=== PATIENT | male | born 1965 | race African-American/Black ===

== ENCOUNTER 2019-08-21 15:05 | Observation (INO) ==
[2019-08-21 15:50] LABS: Basophils # (auto) 0.02 K/uL (0-0.2); Basophils % (auto) 0.3 %; Eosinophils # (auto) 0.31 K/uL (0-0.5); Eosinophils % (auto) 5.1 %; Hematocrit (blood only) 40.7 % (42-52); Hemoglobin 14.2 g/dL (14.0-18.0); Immature Granulocytes # (auto) 0.01 K/uL (0.00-0.02); Immature Granulocytes % (auto) 0.2 %; Lymphocytes # (auto) 2.18 K/uL (1.2-3.4); Lymphocytes % (auto) 35.6 %; Mean Corpuscular Hemoglobin 31.3 pg (25-34); Mean Corpuscular Hgb Conc 34.9 g/dL (32-36); Mean Corpuscular Volume 89.8 fL (80-100); Mean Platelet Volume 12.1 fL (7.4-10.4); Monocytes # (auto) 0.56 K/uL (0.11-0.59); Monocytes % (auto) 9.2 %; Neutrophils # (auto) 3.04 K/uL (1.4-6.5); Neutrophils % (auto) 49.6 %; Platelet Count 171 K/uL (130-400); RDW Coefficient of Variation 12.4 % (11.5-14.5); RDW Standard Deviation 40.7 fL (36.4-46.3); Red Blood Count 4.53 M/uL (4.7-6.1); White Blood Count 6.12 K/uL (4.8-10.8)
--- NOTE | 2019-08-21 16:02 | XRay Report ---
XR chest 1V portable CLINICAL HISTORY: Chest pain. COMPARISON STUDY: No previous studies for comparison. FINDINGS: Lung volumes are normal. There is no pneumothorax or pleural effusion. There is no consolid ation or evidence for pulmonary edema. Cardiac size is normal. Mediastinal contours are normal. Patie nt is mildly rotated. Note is made of irregularity and slight expansion of the posterior right 10th r ib. IMPRESSION: 1. No acute cardiopulmonary findings. 2. Irregularity and slight expansion of the posterior right 10th rib. Although nonspecific, this stat istically reflects a healed fracture. Correlation with prior imaging studies, if available, is recomm ended. In the absence of prior studies, follow-up right rib series is recommended. Electronically signed by: Ned Magdaleno M.D. 08/21/2019 4:01 PM
[2019-08-21 16:03] LABS: Alanine Aminotransferase 24 U/L (12-78); Albumin Level 3.6 gm/dl (3.4-5.0); Aspartate Aminotransferase 16 U/L (15-37); BUN Creatinine Ratio 10.5 (10-20); Blood Urea Nitrogen 12 mg/dl (7-18); Calcium 9.2 mg/dl (8.5-10.1); Carbon Dioxide 28 mmol/L (21-32); Chloride 105 mmol/L (98-107); Creatinine Clr Calc Pharmacy 72.8 ml/min; Est GFR (African American) 83.2; Est GFR (Non-African American) 71.7; Glucose 87 mg/dl (70-99); Lipase 87 U/L (73-393); Magnesium 2.2 mg/dl (1.8-2.4); Potassium 3.7 mmol/L (3.5-5.1); Sodium 138 mmol/L (136-145)
[2019-08-21 16:08] LABS: Prothrombin Time 10.3 Seconds (9.0-12.0)
[2019-08-21 16:15] LABS: Albumin Globulin Ratio 0.9 (0.9-2); Alkaline Phosphatase 77 U/L (45-117); Bilirubin,Total 1.1 mg/dl (0.2-1); Phosphorus 3.1 mg/dl (2.5-4.9); Total Protein 7.6 gm/dl (6.4-8.2); Troponin I < 0.015 ng/ml (0-0.045)
[2019-08-21] MEDS ORDERED: GI COCKTAIL ED USE PO ONE (16:59)
[2019-08-21] MEDS ORDERED: FAMOTIDINE 20MG IV PUSH 20 MG/5 ML SYR IV STA (16:59)
[2019-08-21] MEDS ORDERED: NITROGLYCERIN SL 0.4 MG/TAB TAB SL PRN (19:45)
[2019-08-21] MEDS ORDERED: MoRPHine SULFATE 2 MG/ML CARP IV PRN (19:59)
[2019-08-21] MEDS ORDERED: ZOLPIDEM TARTRATE 5 MG TAB PO PRN (19:59)
[2019-08-21] MEDS ORDERED: MAGNESIUM HYDROXIDE SUSP 30 ML UDC PO PRN (19:59)
[2019-08-21] MEDS ORDERED: POLYETHYLENE (MIRALAX) 17 GM PACK PO PRN (19:59)
[2019-08-21] MEDS ORDERED: ALUMINUM/MAGNESIUM SUSP 30 ML UDC PO PRN (19:59)
[2019-08-21] MEDS ORDERED: ONDANSETRON INJ 2 MG/ML 2 ML VIAL IV PRN (19:59)
[2019-08-21] MEDS ORDERED: ASPIRIN 81 MG ECTAB PO STA (20:12)
--- NOTE | 2019-08-21 20:23 | History & Physical Report ---
Date of Service August 21, 2019 Assessment & Plan (1) Chest pain: Plan: admit to telemetry obtain serial cardiac enz NTG SL/topical prn CP, if chest pain does not improve we will consider starting nitroglycerin drip consult configuration management manager pain management Check hemoglobin A1c/lipids to stratify patient risk factors repeat EKG prn chest pain (2) HTN (hypertension): Systolic blood pressure is 140 expected to drop with a nitroglycerin patch Heart rate is in the 60s, if pressure is not improved with nitroglycerin patch we will start low-dose beta-fritz History of Present Illness 54-year-old man with a past medical history came from a correction facility, patient stated that he did have a cardiac catheterization in the , and another cardiac catheterization in October 2018 in [place] in [facility] patient is not sure if he had stents or not but he said that he was on Plavix for the. Of time until he was taken off Plavix. He was in his regular state of health, said that on off he gets mild left-sided chest pain that resolves by itself. Unrelated to exertion. Today he was watching TV when he developed sudden severe left-sided chest pain effect of his neck and left shoulder. He said that it initially felt like heaviness then changed into stabbing, 10/10 intensity , associated with shortness of breath, diaphoresis. He woke to the medical office and was sent to the ED, said that sublingual nitroglycerin helped with the pain partially. He came to the ED and he continued to have pain 6/10. Quit smoking 10 months ago Quit cocaine/drugs 11 years ago No access to alcohol Primary Care Provider: [facility] Allergies Allergy/AdvReac Type Severity Reaction Status Date / Time No Known Allergies Allergy Unverified 08/21/19 16:00 Home Medications Home Medications Medication Instructions Recorded Confirmed Type nitroglycerin 0.4 mg SUBLINGUAL UD 08/21/19 08/21/19 History Past Med/Surg History Medical History History of heart attack HTN (hypertension) Surgical History Hx of cardiac catheterization Family History Other No significant family history Social History Preferred Language: Greek marital status: Single Current Living Situation: Other Current Living Situation Comment: [facility] current occupational status: other current occupation: Prisoner Feels Safe at Home: Yes Smoking Status: Former smoker Review of Systems Review of Systems: Review of system Constitutional: No fever / no chills / no sweats / no weakness / no fatigue Eyes: no blurring of vision / no eye pain / no discharge / no redness ENT: no hearing loss / no epistaxis /no swallowing problems Respiratory: no cough / no wheezing / no SOB / no hemoptysis Cardiovascular: Positive for chest pain / no lower extremity edema / no palpitation Abdomen: no pain / no nausea / no vomiting / no constipation Musculoskeletal: no joint pain / no muscle pain / no joint swelling Genitourinary: no dysuria / no incontinence / no urinary retention Neurologic: no focal weakness / no numbness/tingling / no ataxia Psychiatric: no depression symptoms / no anxiety / no insomnia Endocrine: no excessive thirst / no excessive urination Hematologic: no abnormal bleeding / no bruising / no LN swelling Skin: No rash / no pallor Physical Exam Physical Exam: Physical examination General patient appears to be comfortable, not in acute distress HEENT: Atraumatic , normocephalic /no jaundice /no pallor /anicteric /no dry mucous membrane /normal external ear inspection Neck: Supple /no swelling /central trach Heart: S1/S2 normal/regular rate and rhythm/no gallop /no rub /no murmur Lungs: Clear to auscultation bilaterally/normal chest with expansion/no rhonchi/no rales/no wheezing/no use of accessory muscles of respiration Abdomen: Soft/nontender/no guarding/no rebound/no organomegaly/no pulsatile mass Musculoskeletal: No swelling/no edema/no tenderness/normal range of motion Neuro exam: Awake alert oriented 3/cranial nerves II through XII appear to be intact/sensation intact/moves all extremities/no abnormal movements Psychiatric evaluation: No depressed mood/normal affect Skin: No rash on exposed skin area/no erythema Extremity: Normal pulse/no pitting edema/no clubbing or cyanosis Endocrine/lymphatic: No obvious lymphadenopathy /no lymphedema Results & Data Vital Signs (Past 12 Hours) Vital Signs Temp Pulse Pulse Resp BP BP Pulse Ox 08/21/19 20:00 63 15 141/93 H 99 08/21/19 19:30 65 15 144/102 H 99 08/21/19 19:00 64 16 156/111 H 99 08/21/19 18:30 62 15 149/110 H 99 08/21/19 18:09 64 18 133/103 H 99 08/21/19 18:00 62 13 140/100 99 08/21/19 17:35 61 18 137/98 99 08/21/19 17:30 67 13 137/98 08/21/19 17:00 63 14 138/97 99 08/21/19 16:30 61 17 131/95 98 08/21/19 16:00 65 14 132/95 98 08/21/19 15:30 67 16 137/91 97 08/21/19 15:05 36.6 C 71 16 130/110 H 97 PG Care Time/CCT Total # of Minutes Spent Total Time Spent with Patient: 35 minutes total time spent is greater than 50% in coordination of care (as documented) at patient's floor/unit and/or counseling patient/family discussion of care with nursing staff
[2019-08-21 21:21] LABS: D Dimer 320 ug/L FEU (0-500)
--- NOTE | 2019-08-21 22:01 | Emergency Department Note ---
Entered by Amy Welch acting as a scribe for History of Present Illness General Chief complaint: Chest Pain Time Seen by Provider: 08/21/19 15:11 Source: patient History of Present Illness Onset (ago): hour(s) 2 Location: chest Severity: similar to prior episodes (heart attacks) Pain Consistency: + constant Maximum Pain Intensity: 8 Current Pain Intensity: 8 Quality: + aching Relieved By: not by medication (Nitroglycerin, Aspirin) Exacerbated By: + movement (exertion) Associated symptoms: + denies other symptoms (congestion, diarrhea) and + diaphoresis; no cough, no fever/chills (fever), no nausea/vomiting (nausea) and no shortness of breath The patient is a 54 year old male who presents to the Emergency Room with complaints of constant chest pain starting 2 hours ago. The patient states that he has a history of 2 heart attacks in his past. He reports that today he was sitting watching TV when he suddenly started having an aching chest pain. He reports that he broke out into a sweat. He states that it felt similar to his previous heart attacks. He states that he took a Nitroglycerin and 4 Aspirin, but it offered no relief. He states that the pain is currently an 8/ 10 in severity. He notes that intermittently heh as a sharp chest pain ever few months that he takes Nitroglycerin for, but recently has had it intermittently with exertion. The patient notes that he was on Plavix, but no longer is. The patient denies a history of blood clots, a history of GERD, eating prior to the pain coming on, fever, cough, congestion, diarrhea, shortness of breath, and nausea. Home Medications Home Medications Medication Instructions Recorded Confirmed Type nitroglycerin 0.4 mg SUBLINGUAL UD 08/21/19 08/21/19 History Allergies Allergy/AdvReac Type Severity Reaction Status Date / Time No Known Allergies Allergy Unverified 08/21/19 16:00 Past Med/Surg History Medical History History of heart attack HTN (hypertension) Surgical History Hx of cardiac catheterization Family History Other No significant family history Social History Preferred Language: Portuguese Communication Ability: Effective Beliefs That Will Affect Care: None marital status: Single Current Living Situation: Other Current Living Situation Comment: [facility] current occupational status: other current occupation: Prisoner Other Information That Helps Us Care for You: No Feels Safe at Home: Yes Safety Concerns: Feels Safe At This Time Smoking Status: Never smoker Hx Alcohol Use: No Hx Substance Use: No Review of Systems See HPI for pertinent positives & negatives. and A total of 10 systems reviewed and were otherwise negative Physical Exam Vital Signs Vital Signs - 24 hr 08/21/19 15:05 08/21/19 15:30 08/21/19 16:00 Temperature 36.6 C Temperature Source Oral Pulse Rate 71 67 65 Pulse Rate [Left] Pulse Rate from SpO2 Sensor 67 65 Pulse Rhythm Regular Respiratory Rate 16 16 14 Respiratory Effort / Characteristics Non-Labored Respiratory Depth Normal Respiratory Pattern Regular Blood Pressure 130/110 H 137/91 132/95 Blood Pressure [Right Arm] Blood Pressure Mean 116 97 101 Blood Pressure Mean [Right Arm] Blood Pressure Position [Right Arm] Pulse Oximetry 97 97 98 Oxygen Delivery Method Room Air Room Air Room Air Sepsis Recent Fever Within 48 Hours No Sepsis New/Unexplained Change in Mental Status No Sepsis Action Taken by Nursing No Action Required 08/21/19 16:30 08/21/19 17:00 08/21/19 17:30 Temperature Temperature Source Pulse Rate 61 63 67 Pulse Rate [Left] Pulse Rate from SpO2 Sensor 62 63 Pulse Rhythm Respiratory Rate 17 14 13 Respiratory Effort / Characteristics Respiratory Depth Respiratory Pattern Blood Pressure 131/95 138/97 137/98 Blood Pressure [Right Arm] Blood Pressure Mean 100 110 104 Blood Pressure Mean [Right Arm] Blood Pressure Position [Right Arm] Pulse Oximetry 98 99 Oxygen Delivery Method Room Air Room Air Sepsis Recent Fever Within 48 Hours Sepsis New/Unexplained Change in Mental Status Sepsis Action Taken by Nursing 08/21/19 17:35 08/21/19 18:00 08/21/19 18:09 Temperature Temperature Source Pulse Rate 62 64 Pulse Rate [Left] 61 Pulse Rate from SpO2 Sensor 62 64 Pulse Rhythm Respiratory Rate 18 13 18 Respiratory Effort / Characteristics Non-Labored Spontaneous Respiratory Depth Respiratory Pattern Blood Pressure 140/100 133/103 H Blood Pressure [Right Arm] 137/98 Blood Pressure Mean 107 107 Blood Pressure Mean [Right Arm] 111 Blood Pressure Position [Right Arm] Lying Pulse Oximetry 99 99 99 Oxygen Delivery Method Room Air Room Air Room Air Sepsis Recent Fever Within 48 Hours Sepsis New/Unexplained Change in Mental Status Sepsis Action Taken by Nursing 08/21/19 18:30 08/21/19 19:00 08/21/19 19:30 Temperature Temperature Source Pulse Rate 62 64 65 Pulse Rate [Left] Pulse Rate from SpO2 Sensor 63 64 63 Pulse Rhythm Respiratory Rate 15 16 15 Respiratory Effort / Characteristics Respiratory Depth Respiratory Pattern Blood Pressure 149/110 H 156/111 H 144/102 H Blood Pressure [Right Arm] Blood Pressure Mean 126 130 106 Blood Pressure Mean [Right Arm] Blood Pressure Position [Right Arm] Pulse Oximetry 99 99 99 Oxygen Delivery Method Room Air Room Air Room Air Sepsis Recent Fever Within 48 Hours Sepsis New/Unexplained Change in Mental Status Sepsis Action Taken by Nursing GENERAL: Awake, alert, fatigued-appearing, in no distress HENT: Normocephalic, atraumatic. Oropharynx with dry mucous membranes and otherwise unremarkable. EYES: Normal conjunctiva. Sclera non-icteric. NECK: Supple. No nuchal rigidity. FROM. No JVD. RESPIRATORY: Clear to auscultation bilaterally. CARDIAC: Regular rate, normal rhythm. Extremities warm and well perfused. Pulses equal. ABDOMEN: Soft, non-distended. No tenderness to palpation. No rebound or guarding. No masses. RECTAL: Deferred. MUSCULOSKELETAL: Chest examination reveals no tenderness. The back is s ymmetrical on inspection without obvious abnormality. There is no CVA tenderness to palpation. No joint edema. LOWER EXTREMITIES: Calves are equal size bilaterally and non-tender. No edema. No discoloration. NEURO: Normal sensorium. No sensory or motor deficits noted. SKIN: No rash or jaundice noted. Course Course 1547: The patient was evaluated in room B6. A complete history and physical exam was performed. 1711: I discussed the patient's case with Dr. Dickinson [facility] Hospitalist. He will evaluate the patient for further management. 1725: I reevaluated the patient and updated him on his test results. I discussed the treatment plan with him. He verbally agrees and understands. Administered Medications Acetaminophen (Tylenol) 650 mg PO Q4H PRN PRN Reason: Pain or Fever Stop: 09/20/19 19:58 Last Admin: 08/21/19 23:03 Dose: 650 mg Documented by: [id number] Atorvastatin Calcium (Lipitor) 40 mg PO DAILY IVONNE Stop: 09/20/19 20:59 Last Admin: 08/21/19 23:01 Dose: 40 mg Documented by: [id number] Sodium Chloride (Nss 1000ml) 1,000 mls @ 50 mls/hr IV .Q20H IVONNE Stop: 09/20/19 19:59 Last Admin: 08/21/19 23:01 Dose: 50 mls/hr Documented by: [id number] Nitroglycerin (Nitrostat) 0.4 mg SL UD PRN PRN Reason: Chest Pain Stop: 09/20/19 19:58 Last Admin: 08/21/19 23:02 Dose: 0.4 mg Documented by: [id number] Nitroglycerin (Nitro-Bid 2%) 1 inch EXT Q6 IVONNE Stop: 09/21/19 00:00 Last Admin: 08/22/19 00:00 Dose: Not Given Documented by: [id number] Discontinued Medications Al Hydrox/Mg Hydrox/Simethicone () 1 dose PO ONE ONE Stop: 08/21/19 17:00 Last Admin: 08/21/19 17:30 Dose: 1 dose Documented by: [id number] Aspirin (Ecotrin Ectab) 81 mg PO NOW STA Stop: 08/21/19 20:13 Last Admin: 08/21/19 21:13 Dose: 81 mg Documented by: [id number] Famotidine (Pepcid 20mg Iv Push) 20 mg in 5 mls @ 2.5 mls/min IV NOW STA Stop: 08/21/19 17:00 Last Admin: 08/21/19 17:30 Dose: 2.5 mls/min Documented by: [id number] Impression & Plan Chest pain, exertional, Abnormal ECG, Hx of cardiac catheterization Medical Decision Making Differential Diagnosis Differential diagnoses includes but is not limited to acute coronary syndrome, myocardial infarction, pericarditis, pulmonary embolus, aortic dissection, pneumonia, pneumothorax, musculoskeletal, shingles, esophageal. Medical Records Attestation: I reviewed the patient's medical records. Home Medications Current Medication List: was personally reviewed by me Laboratory Data Attestation: I reviewed the patient's lab results. Result diagrams: 08/22/19 01:22 08/22/19 01:22 Lab Results 08/21/19 08/21/19 08/21/19 Range/Units 15:22 15:22 15:22 WBC 6.12 (4.8-10.8) K/uL RBC 4.53 L (4.7-6.1) M/uL Hgb 14.2 (14.0-18.0) g/dL Hct 40.7 L (42-52) % MCV 89.8 (80-100) fL MCH 31.3 (25-34) pg MCHC 34.9 (32-36) g/dL RDW Std Deviation 40.7 (36.4-46.3) fL RDW Coeff of Ewelina 12.4 (11.5-14.5) % Plt Count 171 (130-400) K/uL MPV 12.1 H (7.4-10.4) fL Immature Gran % (Auto) 0.2 % Neut % (Auto) 49.6 % Lymph % (Auto) 35.6 % Dickens % (Auto) 9.2 % Eos % (Auto) 5.1 % Baso % (Auto) 0.3 % Immature Gran # (Auto) 0.01 (0.00-0.02) K/uL Neut # (Auto) 3.04 (1.4-6.5) K/uL Lymph # (Auto) 2.18 (1.2-3.4) K/uL Dickens # (Auto) 0.56 (0.11-0.59) K/uL Eos # (Auto) 0.31 (0-0.5) K/uL Baso # (Auto) 0.02 (0-0.2) K/uL PT 10.3 (9.0-12.0) Seconds INR 1.0 (0.9-1.1) Sodium 138 (136-145) mmol/L Potassium 3.7 (3.5-5.1) mmol/L Chloride 105 (98-107) mmol/L Carbon Dioxide 28 (21-32) mmol/L Anion Gap 5.0 (3-11) BUN 12 (7-18) mg/dl Creatinine 1.15 (0.6-1.4) mg/dl Est Cr Clr Drug Dosing 72.8 ml/min Est GFR ( Amer) 83.2 Est GFR (Non-Af Amer) 71.7 BUN/Creatinine Ratio 10.5 (10-20) Glucose 87 (70-99) mg/dl Calcium 9.2 (8.5-10.1) mg/dl Phosphorus 3.1 (2.5-4.9) mg/dl Magnesium 2.2 (1.8-2.4) mg/dl Total Bilirubin 1.1 H (0.2-1) mg/dl AST 16 (15-37) U/L ALT 24 (12-78) U/L Alkaline Phosphatase 77 (45-117) U/L Troponin I < 0.015 (0-0.045) ng/ml Total Protein 7.6 (6.4-8.2) gm/dl Albumin 3.6 (3.4-5.0) gm/dl Globulin 4.0 (2.5-4.0) gm/dl Albumin/Globulin Ratio 0.9 (0.9-2) Lipase 87 (73-393) U/L TSH 2.310 (0.300-4.500) uIu/ml Hepatitis C Ab Screen (Neg) 08/21/19 Range/Units 15:22 WBC (4.8-10.8) K/uL RBC (4.7-6.1) M/uL Hgb (14.0-18.0) g/dL Hct (42-52) % MCV (80-100) fL MCH (25-34) pg MCHC (32-36) g/dL RDW Std Deviation (36.4-46.3) fL RDW Coeff of Ewelina (11.5-14.5) % Plt Count (130-400) K/uL MPV (7.4-10.4) fL Immature Gran % (Auto) % Neut % (Auto) % Lymph % (Auto) % Dickens % (Auto) % Eos % (Auto) % Baso % (Auto) % Immature Gran # (Auto) (0.00-0.02) K/uL Neut # (Auto) (1.4-6.5) K/uL Lymph # (Auto) (1.2-3.4) K/uL Dickens # (Auto) (0.11-0.59) K/uL Eos # (Auto) (0-0.5) K/uL Baso # (Auto) (0-0.2) K/uL PT (9.0-12.0) Seconds INR (0.9-1.1) Sodium (136-145) mmol/L Potassium (3.5-5.1) mmol/L Chloride (98-107) mmol/L Carbon Dioxide (21-32) mmol/L Anion Gap (3-11) BUN (7-18) mg/dl Creatinine (0.6-1.4) mg/dl Est Cr Clr Drug Dosing ml/min Est GFR ( Amer) Est GFR (Non-Af Amer) BUN/Creatinine Ratio (10-20) Glucose (70-99) mg/dl Calcium (8.5-10.1) mg/dl Phosphorus (2.5-4.9) mg/dl Magnesium (1.8-2.4) mg/dl Total Bilirubin (0.2-1) mg/dl AST (15-37) U/L ALT (12-78) U/L Alkaline Phosphatase (45-117) U/L Troponin I (0-0.045) ng/ml Total Protein (6.4-8.2) gm/dl Albumin (3.4-5.0) gm/dl Globulin (2.5-4.0) gm/dl Albumin/Globulin Ratio (0.9-2) Lipase (73-393) U/L TSH (0.300-4.500) uIu/ml Hepatitis C Ab Screen Neg (Neg) Imaging Data Radiologist's Impression: Radiology results as stated below per my review and the radiologist's interpretation: XR chest 1V portable CLINICAL HISTORY: Chest pain. COMPARISON STUDY: No previous studies for comparison. FINDINGS: Lung volumes are normal. There is no pneumothorax or pleural effusion. There is no consolidation or evidence for pulmonary edema. Cardiac size is normal. Mediastinal contours are normal. Patient is mildly rotated. Note is made of irregularity and slight expansion of the posterior right 10th rib. IMPRESSION: 1. No acute cardiopulmonary findings. 2. Irregularity and slight expansion of the posterior right 10th rib. Although nonspecific, this statistically reflects a healed fracture. Correlation with prior imaging studies, if available, is recommended. In the absence of prior studies, follow-up right rib series is recommended. Electronically signed by: Ned Magdaleno M.D. 08/21/2019 4:01 PM ECG Data Attestation: I personally reviewed and interpreted this ECG as follows: Indication: + chest pain Rate (beats per minute): 70 Rhythm: + normal sinus ECG [place]: + Normal ECG Findings: + Other (QT-c 442, nonspecifica T wave abnormality anteriorly); no PACs and no PVCs Blood Pressure Blood Pressure Findings: Elevated blood pressure Blood Pressure Disposition: further management by hospitalist MDM Narrative The patient is a pleasant 54-year-old gentleman current inmate with a self- reported of prior HI in the setting of crack cocaine use remotely presents emerged department from his present facility complaining of acute onset substernal chest pain that began when he was watching TV prior to arrival per hpi. Of note, patient does report increasing pattern over the last week of dyspnea with chest pressure on exertion. EKG demonstrates T wave inversion V3 and otherwise without overt acute ischemia. Repeat without significant change. Chest x-ray negative for acute process. WBC, Hbg, platelets wnl. Chemistry without acidosis. LFTs and electrolytes unremarkable. Initial troponin negative/undetectable. Patient has was given aspirin and nitro prior to arrival but denied any improvement in symptoms. Therefore patient was given a trial of GI medications with Pepcid and GI cocktail. However, given the patient's reported exertional symptoms reasonable to admit the patient for further cardiac evaluation. Patient is agreeable with this. Case was discussed with Dr. Rios, [facility] hospitalist, who will evaluate the patient for admission. Discharge Plan Visit Data *Final* Discharge Date/Time: 08/21/19 21:14 Chief Complaint: Chest Pain ED Provider: Andrea Bland Discharge Problem: Chest pain, exertional, Abnormal ECG, Hx of cardiac catheterization Patient Disposition: Admitted As Inpatient Discharge Instructions Interventions: ED Discharge Assessment Last Done: 08/21/19 21:14 The scribe's documentation has been prepared under my direction and personally reviewed by me in its entirety. I confirm that the note above accurately reflects all work, treatment, procedures, and medical decision making performed by me.
[2019-08-21] MEDS: ATORVASTATIN 40 MG TAB PO SCH (23:01)
[2019-08-21] MEDS: SODIUM CHLORIDE 0.9% 1000ML 1,000 ML IV SCH (23:01)
[2019-08-21] MEDS: NITROGLYCERIN SL 0.4 MG/TAB TAB SL PRN (23:02)
[2019-08-21] MEDS: ACETAMINOPHEN 325 MG TAB PO PRN (23:03)
[2019-08-22 01:32] LABS: Basophils # (auto) 0.02 K/uL (0-0.2); Basophils % (auto) 0.3 %; Eosinophils # (auto) 0.32 K/uL (0-0.5); Eosinophils % (auto) 5.1 %; Hematocrit (blood only) 39.1 % (42-52); Hemoglobin 13.7 g/dL (14.0-18.0); Immature Granulocytes # (auto) 0.01 K/uL (0.00-0.02); Immature Granulocytes % (auto) 0.2 %; Lymphocytes # (auto) 2.67 K/uL (1.2-3.4); Lymphocytes % (auto) 42.2 %; Mean Corpuscular Hemoglobin 31.4 pg (25-34); Mean Corpuscular Volume 89.7 fL (80-100); Mean Platelet Volume 11.3 fL (7.4-10.4); Monocytes # (auto) 0.68 K/uL (0.11-0.59); Monocytes % (auto) 10.7 %; Neutrophils # (auto) 2.63 K/uL (1.4-6.5); Neutrophils % (auto) 41.5 %; Platelet Count 144 K/uL (130-400); RDW Coefficient of Variation 12.2 % (11.5-14.5); RDW Standard Deviation 40.5 fL (36.4-46.3); Red Blood Count 4.36 M/uL (4.7-6.1); White Blood Count 6.33 K/uL (4.8-10.8)
[2019-08-22 01:50] LABS: Alanine Aminotransferase 23 U/L (12-78); Albumin Level 3.3 gm/dl (3.4-5.0); Aspartate Aminotransferase 14 U/L (15-37); BUN Creatinine Ratio 9.7 (10-20); Blood Urea Nitrogen 12 mg/dl (7-18); Calcium 8.7 mg/dl (8.5-10.1); Carbon Dioxide 31 mmol/L (21-32); Chloride 103 mmol/L (98-107); Creatinine Clr Calc Pharmacy 64.6 ml/min; Est GFR (African American) 74.5; Est GFR (Non-African American) 64.2; Glucose 94 mg/dl (70-99); Potassium 3.6 mmol/L (3.5-5.1); Sodium 138 mmol/L (136-145)
[2019-08-22 01:55] LABS: Albumin Globulin Ratio 0.9 (0.9-2); Alkaline Phosphatase 69 U/L (45-117); Bilirubin,Total 1.3 mg/dl (0.2-1); Chol HDL Ratio 5; Cholesterol 161 mg/dl (0-200); Globulin 3.8 gm/dl (2.5-4.0); HDL Cholesterol 30 mg/dl; LDL Cholesterol Calculated 74 mg/dl; Total Protein 7.1 gm/dl (6.4-8.2); Triglycerides 283 mg/dl (0-150); Troponin I < 0.015 ng/ml (0-0.045); VLDL Cholesterol 57 mg/dl
[2019-08-22] MEDS: NITROGLYCERIN 2% OINTMENT 30GM TUBE EXT SCH ×4 (05:57→18:11)
[2019-08-22 06:29] LABS: Estimated Average Glucose 117 mg/dl; Hemoglobin A1C 5.7 % (4.5-5.6)
[2019-08-22] MEDS: NITROGLYCERIN SL 0.4 MG/TAB TAB SL PRN (07:49)
[2019-08-22] MEDS: ACETAMINOPHEN 325 MG TAB PO PRN ×2 (07:53→20:59)
[2019-08-22] MEDS: ATORVASTATIN 40 MG TAB PO SCH (08:50)
[2019-08-22] MEDS ORDERED: ASPIRIN/ALUM/MAGNES/CAL CARB 325 MG TAB PO SCH (09:00)
[2019-08-22] MEDS ORDERED: ASPIRIN 325 MG ECTAB PO SCH (09:00)
--- NOTE | 2019-08-22 10:11 | Cardiology Consultation ---
Date of Consultation August 22, 2019 Assessment & Plan (1) Chest pain: The character of the patient's symptoms is concerning for ischemia. He reportedly has a history of prior infarct but no known intervention. His EKG does not reflect an infarct. Despite several hours of severe chest discomfort he has normal cardiac biomarkers. My suspicion for an acute coronary syndrome is very low. He would seem reasonable to perform some risk stratification given his reported history. I am hoping we can obtain his records from [place], but will proceed with dobutamine echocardiography today. Seems to have an element of high blood pressure. He reports having been on antihypertensive previously. Pending the results of his testing we could choose an antihypertensive for discharge. In the absence of known coronary disease his lipid profile appears adequate. If he is truly had prior infarcts or if there is evidence of prior infarct on his echocardiogram then initiation of anti-lipid therapy with high-dose statin would be advisable. (2) Abnormal ECG: History of Present Illness Reason for Consultation: Chest pain Requesting Physician: Navneet Attending Physician: Kev Weathers DO History of Present Illness The patient is a 54-year-old gentleman with a reported history of coronary disease having previously suffered 2 myocardial infarctions. Patient states that in the he suffered a myocardial infarction and underwent cardiac catheterization. He is unclear whether any intervention was performed at that time. He appears to been on medical therapy for some time but is not currently taking any treatment for high blood pressure, hyperlipidemia or coronary disease. Patient states that 10 months ago he was also seen at a hospital outside of [place] for what he describes as a heart attack. Patient had symptoms of chest discomfort at that time and again reported undergoing cardiac catheterization. He is unclear of the results or whether any intervention was performed. He states that for the subsequent 10 months he had no symptoms at all. Yesterday afternoon he began to experience symptoms of chest discomfort and left arm pain. This was moderate to severe in nature. It did not appear to be pleuritic in nature. It seemed to improve with some changes in position. He did take nitroglycerin which improved his symptoms but did not relieve it entirely. His symptoms persisted for many hours and was present even after he presented to our facility for evaluation. He states that the symptoms eventually resolved and he is pain-free this morning. In general he is a very sedentary individual. He seems to avoid extremes of exertion in order to avoid chest discomfort. As noted above he has not had chest discomfort and had months. He has not report other symptoms such as breathing difficulty. He did endorse occasional palpitations. He did endorse a sensation of dizziness yesterday during his symptoms of chest pain. He felt as if he was presyncopal. He has not had the symptoms at other times. He cannot recall the syncopal episode. Allergies Allergy/AdvReac Type Severity Reaction Status Date / Time No Known Allergies Allergy Unverified 08/21/19 16:00 Home Medications Home Medications Medication Instructions Recorded Confirmed Type nitroglycerin 0.4 mg SUBLINGUAL UD 08/21/19 08/21/19 History Patient History Medical History History of heart attack HTN (hypertension) Surgical History Hx of cardiac catheterization (Acute) Family History Other No significant family history Social History Preferred Language: Luxembourger Communication Ability: Effective Beliefs That Will Affect Care: None marital status: Single Current Living Situation: Other Current Living Situation Comment: [facility] current occupational status: other current occupation: Prisoner Other Information That Helps Us Care for You: No Feels Safe at Home: Yes Safety Concerns: Feels Safe At This Time Smoking Status: Never smoker Hx Alcohol Use: No Hx Substance Use: No Review of Systems Review of Systems: All systems reviewed & are unremarkable except as noted in HPI & below No lower extremity edema. No abdominal pain. Physical Exam Physical Exam: The patient is alert and oriented. Mood and affect appeared normal. He answered all questions appropriately. HEENT: Pupils are equal and reactive to light and accommodation. Extraocular movements are intact. The sclerae are anicteric. Poor dentition Neuro: Cranial nerves intact Neck: Patient's neck is supple. He has palpable carotid pulses bilaterally without bruits on auscultation. There is no evidence of jugular venous distention. The thyroid is not enlarged. Lungs: Clear to auscultation bilaterally. He has good air movement without use of accessory muscles. No rales wheezes or rhonchi. Cardiac: Heart demonstrates a regular rate and rhythm. Normal S1 and S2. No murmurs on examination. Pulses: The patient has palpable radial pulses bilaterally that are equal in intensity Extremities: There was no evidence of hypoperfusion. There is no cyanosis or clubbing. There is no edema. Skin: I did not appreciate any rashes on examination today. Results & Data Vital Signs (Past 12 Hours) Vital Signs Temp Pulse Resp BP BP Pulse Ox 08/22/19 07:57 80 156/89 H 08/22/19 07:52 70 170/102 H 08/22/19 07:36 36.6 C 68 20 156/107 H 99 08/22/19 04:10 36.6 C 63 19 151/104 H 100 08/21/19 22:55 36.4 C L 70 18 155/105 H 99 Laboratory Results Abnormal Lab Results 08/21/19 08/21/19 08/21/19 15:22 15:22 15:22 WBC 6.12 RBC 4.53 L Hgb 14.2 Hct 40.7 L MCV 89.8 MCH 31.3 MCHC 34.9 RDW Std Deviation 40.7 RDW Coeff of Ewelina 12.4 Plt Count 171 MPV 12.1 H Immature Gran % (Auto) 0.2 Neut % (Auto) 49.6 Lymph % (Auto) 35.6 Greer % (Auto) 9.2 Eos % (Auto) 5.1 Baso % (Auto) 0.3 Immature Gran # (Auto) 0.01 Neut # (Auto) 3.04 Lymph # (Auto) 2.18 Greer # (Auto) 0.56 Eos # (Auto) 0.31 Baso # (Auto) 0.02 PT 10.3 INR 1.0 D-Dimer Sodium 138 Potassium 3.7 Chloride 105 Carbon Dioxide 28 Anion Gap 5.0 BUN 12 Creatinine 1.15 Est Cr Clr Drug Dosing 72.8 Est GFR ( Amer) 83.2 Est GFR (Non-Af Amer) 71.7 BUN/Creatinine Ratio 10.5 Glucose 87 Estimat Average Glucose Hemoglobin A1c Calcium 9.2 Phosphorus 3.1 Magnesium 2.2 Total Bilirubin 1.1 H AST 16 ALT 24 Alkaline Phosphatase 77 Troponin I < 0.015 Total Protein 7.6 Albumin 3.6 Globulin 4.0 Albumin/Globulin Ratio 0.9 Triglycerides Cholesterol LDL Cholesterol, Calc VLDL Cholesterol, Calc HDL Cholesterol Cholesterol/HDL Ratio Lipase 87 TSH 2.310 Nasal Screen MRSA (PCR) Hepatitis C Ab Screen 08/21/19 08/21/19 08/21/19 15:22 21:05 21:43 WBC RBC Hgb Hct MCV MCH MCHC RDW Std Deviation RDW Coeff of Ewelina Plt Count MPV Immature Gran % (Auto) Neut % (Auto) Lymph % (Auto) Greer % (Auto) Eos % (Auto) Baso % (Auto) Immature Gran # (Auto) Neut # (Auto) Lymph # (Auto) Greer # (Auto) Eos # (Auto) Baso # (Auto) PT INR D-Dimer 320 Sodium Potassium Chloride Carbon Dioxide Anion Gap BUN Creatinine Est Cr Clr Drug Dosing Est GFR ( Amer) Est GFR (Non-Af Amer) BUN/Creatinine Ratio Glucose Estimat Average Glucose Hemoglobin A1c Calcium Phosphorus Magnesium Total Bilirubin AST ALT Alkaline Phosphatase Troponin I Total Protein Albumin Globulin Albumin/Globulin Ratio Triglycerides Cholesterol LDL Cholesterol, Calc VLDL Cholesterol, Calc HDL Cholesterol Cholesterol/HDL Ratio Lipase TSH Nasal Screen MRSA (PCR) Negative Hepatitis C Ab Screen Neg 08/22/19 08/22/19 08/22/19 01:22 01:22 01:22 WBC 6.33 RBC 4.36 L Hgb 13.7 L Hct 39.1 L MCV 89.7 MCH 31.4 MCHC 35.0 RDW Std Deviation 40.5 RDW Coeff of Ewelina 12.2 Plt Count 144 MPV 11.3 H Immature Gran % (Auto) 0.2 Neut % (Auto) 41.5 Lymph % (Auto) 42.2 Greer % (Auto) 10.7 Eos % (Auto) 5.1 Baso % (Auto) 0.3 Immature Gran # (Auto) 0.01 Neut # (Auto) 2.63 Lymph # (Auto) 2.67 Greer # (Auto) 0.68 H Eos # (Auto) 0.32 Baso # (Auto) 0.02 PT INR D-Dimer Sodium 138 Potassium 3.6 Chloride 103 Carbon Dioxide 31 Anion Gap 4.0 BUN 12 Creatinine 1.26 Est Cr Clr Drug Dosing 64.6 Est GFR ( Amer) 74.5 Est GFR (Non-Af Amer) 64.2 BUN/Creatinine Ratio 9.7 L Glucose 94 Estimat Average Glucose 117 Hemoglobin A1c 5.7 H Calcium 8.7 Phosphorus Magnesium Total Bilirubin 1.3 H AST 14 L ALT 23 Alkaline Phosphatase 69 Troponin I < 0.015 Total Protein 7.1 Albumin 3.3 L Globulin 3.8 Albumin/Globulin Ratio 0.9 Triglycerides 283 H Cholesterol 161 LDL Cholesterol, Calc 74 VLDL Cholesterol, Calc 57 HDL Cholesterol 30 Cholesterol/HDL Ratio 5 Lipase TSH Nasal Screen MRSA (PCR) Hepatitis C Ab Screen 08/22/19 07:46 WBC RBC Hgb Hct MCV MCH MCHC RDW Std Deviation RDW Coeff of Ewelina Plt Count MPV Immature Gran % (Auto) Neut % (Auto) Lymph % (Auto) Greer % (Auto) Eos % (Auto) Baso % (Auto) Immature Gran # (Auto) Neut # (Auto) Lymph # (Auto) Greer # (Auto) Eos # (Auto) Baso # (Auto) PT INR D-Dimer Sodium Potassium Chloride Carbon Dioxide Anion Gap BUN Creatinine Est Cr Clr Drug Dosing Est GFR ( Amer) Est GFR (Non-Af Amer) BUN/Creatinine Ratio Glucose Estimat Average Glucose Hemoglobin A1c Calcium Phosphorus Magnesium Total Bilirubin AST ALT Alkaline Phosphatase Troponin I < 0.015 Total Protein Albumin Globulin Albumin/Globulin Ratio Triglycerides Cholesterol LDL Cholesterol, Calc VLDL Cholesterol, Calc HDL Cholesterol Cholesterol/HDL Ratio Lipase TSH Nasal Screen MRSA (PCR) Hepatitis C Ab Screen Diagnostic Findings Chest x-ray obtained at the time of admission every any acute cardiopulmonary disease. Possible right 10th rib fracture. ECG Additional Comments: Serial EKGs were obtained which did reveal some minor T- wave changes. No significant ST segment changes. No evidence of prior infarct. PG Care Time/CCT Total # of Minutes Spent Total Time Spent with Patient: Total time spent is greater than 50% in coordination of care (as documented) at patient's floor/unit and/or counseling patient:
[2019-08-22] MEDS ORDERED: ATROPINE SULFATE 0.1 MG/ML 10ML SYR IV ONE (11:58)
[2019-08-22] MEDS ORDERED: DOBUTamine HCL 12.5 MG/ML 20 ML VIAL IV ONE (11:59)
[2019-08-22] MEDS ORDERED: METOPROLOL TARTRATE 1 MG/ML VIAL IV ONE (11:59)
[2019-08-22] MEDS: SODIUM CHLORIDE 0.9% 1000ML 1,000 ML IV SCH (15:55)
--- NOTE | 2019-08-22 19:05 | Hospitalist Progress Note ---
Date of Service August 22, 2019 Assessment & Plan (1) Chest pain: 54 yo M with PMH HTN and with a reported history of coronary disease having previously suffered 2 myocardial infarctions and unclear whether any intervention was performed presents with complaints of CP. Chest Pain low likelihood of acute coronary syndrome- neg trops, EKG w/o sig findings Concern for ischemia- Dobutamine stress ECHO 08/22- no evidence of inducible ischemia Likely MSK in nature given recent cough- pleuritic nature of pain Chest CTA to r/o pulmonary vascular pathology- No evidence of pulmonary thromboembolic disease. 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 Lipids unremarkable other than Triglycerides 283 Obtaining records from [facility] where Oct 2018 cath performed HTN Not on BP meds but reports having been on antihypertensive previously. BP remains elevated. Will consider starting low-dose beta-fritz prior to d/c Full Code Dispo: D/c tomorrow Supervising Physician Co-Signing Physician Notes I personally examined the patient and verified all moran points of history and exam, discussed case, and agree with decision making with Dr Donovan. Patient feeling about the same. Left-sided chest pain. Discussed with cardiology, input greatly appreciated. General he is awake and alert pleasant no distress. HEENT normocephalic atraumatic mucous membranes are moist, very poor dentition. Breathing is unlabored no accessory muscle use good effort. Muscular skeletal exam shows no reproducible tenderness and no rib related somatic dysfunction. Neuro shows no focal deficits. Chest painhis history seems most consistent with musculoskeletal but he does not at all have the exam for corroborated. Cardiac appears to been effectively ruled out by his troponins and stress test, although we are still awaiting cath report from [place]. Given that it seems muscular without any physical exam findings to show for it, as well as the fact that he has had a cough recently, I do harbor a little bit of suspicion of a pleuritic based process, and given that his chest x-ray was clear we will check a chest CT to definitively rule out any sort of chest pulmonary vascular pathology. If this is negative then we can look towards discharge. Subjective 54 yo M found in bed this AM. Paged from RN in morning about pt with complaints of CP that was similar to what brought him into admission, but not as severe. 02/16. Relieved some with nitro. No other acute concerns or complaints. Pending echo in AM. Review of Systems Review of Systems: All systems reviewed & are unremarkable except as noted in HPI & below Physical Exam Constitutional: WD/WN, vitals as above Eyes: PERRL, conjunctivae normal, anicteric sclerae ENMT: external ear and nose normal, oropharynx normal Respiratory: normal respiratory effort, lungs clear to auscultation Cardiovascular: RRR, no murmur, no edema Gastrointestinal (Abdomen): normal bowel sounds, soft, nontender, no hepatosplenomegaly Skin: no rashes, warm and dry Psychiatric: A+Ox3, euthymic affect Results & Data Vital Signs (Past 12 Hours) Vital Signs Temp Pulse Pulse Resp BP BP Pulse Ox 08/22/19 16:14 37.0 C 76 18 134/83 100 08/22/19 16:00 81 08/22/19 11:07 36.8 C 84 18 145/94 H 99 08/22/19 07:57 80 156/89 H 08/22/19 07:52 70 170/102 H 08/22/19 07:36 36.6 C 68 20 156/107 H 99 08/22/19 07:30 63 Laboratory Results Laboratory Results - last 24 hr 08/21/19 08/21/19 08/22/19 15:22 21:43 01:22 WBC RBC Hgb Hct MCV MCH MCHC RDW Std Deviation RDW Coeff of Ewelina Plt Count MPV Immature Gran % (Auto) Neut % (Auto) Lymph % (Auto) Foard % (Auto) Eos % (Auto) Baso % (Auto) Immature Gran # (Auto) Neut # (Auto) Lymph # (Auto) Foard # (Auto) Eos # (Auto) Baso # (Auto) Sodium 138 Potassium 3.6 Chloride 103 Carbon Dioxide 31 Anion Gap 4.0 BUN 12 Creatinine 1.26 Est Cr Clr Drug Dosing 64.6 Est GFR ( Amer) 74.5 Est GFR (Non-Af Amer) 64.2 BUN/Creatinine Ratio 9.7 L Glucose 94 Estimat Average Glucose Hemoglobin A1c Calcium 8.7 Total Bilirubin 1.3 H AST 14 L ALT 23 Alkaline Phosphatase 69 Troponin I < 0.015 Total Protein 7.1 Albumin 3.3 L Globulin 3.8 Albumin/Globulin Ratio 0.9 Triglycerides 283 H Cholesterol 161 LDL Cholesterol, Calc 74 VLDL Cholesterol, Calc 57 HDL Cholesterol 30 Cholesterol/HDL Ratio 5 Nasal Screen MRSA (PCR) Negative Hepatitis C Ab Screen Neg 08/22/19 08/22/19 08/22/19 01:22 01:22 07:46 WBC 6.33 RBC 4.36 L Hgb 13.7 L Hct 39.1 L MCV 89.7 MCH 31.4 MCHC 35.0 RDW Std Deviation 40.5 RDW Coeff of Ewelina 12.2 Plt Count 144 MPV 11.3 H Immature Gran % (Auto) 0.2 Neut % (Auto) 41.5 Lymph % (Auto) 42.2 Foard % (Auto) 10.7 Eos % (Auto) 5.1 Baso % (Auto) 0.3 Immature Gran # (Auto) 0.01 Neut # (Auto) 2.63 Lymph # (Auto) 2.67 Foard # (Auto) 0.68 H Eos # (Auto) 0.32 Baso # (Auto) 0.02 Sodium Potassium Chloride Carbon Dioxide Anion Gap BUN Creatinine Est Cr Clr Drug Dosing Est GFR ( Amer) Est GFR (Non-Af Amer) BUN/Creatinine Ratio Glucose Estimat Average Glucose 117 Hemoglobin A1c 5.7 H Calcium Total Bilirubin AST ALT Alkaline Phosphatase Troponin I < 0.015 Total Protein Albumin Globulin Albumin/Globulin Ratio Triglycerides Cholesterol LDL Cholesterol, Calc VLDL Cholesterol, Calc HDL Cholesterol Cholesterol/HDL Ratio Nasal Screen MRSA (PCR) Hepatitis C Ab Screen 08/22/19 20:08 WBC RBC Hgb Hct MCV MCH MCHC RDW Std Deviation RDW Coeff of Ewelina Plt Count MPV Immature Gran % (Auto) Neut % (Auto) Lymph % (Auto) Foard % (Auto) Eos % (Auto) Baso % (Auto) Immature Gran # (Auto) Neut # (Auto) Lymph # (Auto) Foard # (Auto) Eos # (Auto) Baso # (Auto) Sodium Potassium Chloride Carbon Dioxide Anion Gap BUN Creatinine Est Cr Clr Drug Dosing Est GFR ( Amer) Est GFR (Non-Af Amer) BUN/Creatinine Ratio Glucose Estimat Average Glucose Hemoglobin A1c Calcium Total Bilirubin AST ALT Alkaline Phosphatase Troponin I < 0.015 Total Protein Albumin Globulin Albumin/Globulin Ratio Triglycerides Cholesterol LDL Cholesterol, Calc VLDL Cholesterol, Calc HDL Cholesterol Cholesterol/HDL Ratio Nasal Screen MRSA (PCR) Hepatitis C Ab Screen Medications Administered Current Inpatient Medications Acetaminophen (Tylenol) 650 mg PO Q4H PRN PRN Reason: Pain or Fever Stop: 09/20/19 19:58 Last Admin: 08/22/19 20:59 Dose: 650 mg Documented by: Al Hydrox/Mg Hydrox/Simethicone (Maalox) 15 ml PO Q4H PRN PRN Reason: Dyspepsia Stop: 09/20/19 19:58 Aspirin (Ecotrin Ectab) 81 mg PO QAM IVONNE Stop: 09/22/19 08:59 Atorvastatin Calcium (Lipitor) 40 mg PO DAILY IVONNE Stop: 09/20/19 20:59 Last Admin: 08/22/19 08:50 Dose: 40 mg Documented by: Sodium Chloride (Nss 1000ml) 1,000 mls @ 50 mls/hr IV .Q20H IVONNE Stop: 09/20/19 19:59 Last Admin: 08/22/19 15:55 Dose: 50 mls/hr Documented by: Ioversol (Optiray 320 125ml) 119 ml IV ONCE PRN PRN Reason: Interaction Checking Stop: 08/26/19 19:53 Last Admin: 08/22/19 19:54 Dose: 119 ml Documented by: Lisinopril (Zestril) 10 mg PO QAM IVONNE Stop: 09/22/19 08:59 Magnesium Hydroxide (Milk Of Magnesia) 30 ml PO Q12H PRN PRN Reason: Constipation Stop: 09/20/19 19:58 Morphine Sulfate (Morphine Sulfate) 2 mg IV Q4H PRN PRN Reason: Chest Pain Stop: 09/04/19 19:58 Nitroglycerin (Nitrostat) 0.4 mg SL UD PRN PRN Reason: Chest Pain Stop: 09/20/19 19:58 Last Admin: 08/22/19 07:49 Dose: 0.4 mg Documented by: Nitroglycerin (Nitro-Bid 2%) 1 inch EXT Q6 IVONNE Stop: 09/21/19 00:00 Last Admin: 08/22/19 18:11 Dose: 1 inch Documented by: Ondansetron HCl (Zofran) 4 mg IV Q6H PRN PRN Reason: Nausea Stop: 09/20/19 19:58 Polyethylene Glycol (Miralax Powder Packet) 17 gm PO DAILY PRN PRN Reason: Constipation Stop: 09/20/19 19:58 Zolpidem Tartrate (Ambien) 5 mg PO HS PRN PRN Reason: Sleep Stop: 09/20/19 19:58 Resident Activity Tracking Resident Involvement: Resident Care Provided Care Provided: Adult Hospital Medicine
--- NOTE | 2019-08-22 19:36 | Billing Data ---
Coding Level of Care Code 94793 Subseq Obs Care Lvl 3
[2019-08-22] MEDS ORDERED: OPTIRAY 320 125ml IV PRN (19:54)
--- NOTE | 2019-08-22 20:24 | CT Scan Report ---
CT angio chest PE protocol CT DOSE: 350.27 mGycm HISTORY: 54 years-old Male with chest pain - eval for PE and eval aorta. Acute chest pain with shor tness of breath TECHNIQUE: Multiple CTA images of the chest were obtained after the intravenous administration of 119 ml Optiray 320. Coronal and sagittal MIPS were obtained from the axial data set and were submitted for review. All measurements were obtained according to NASCET criteria. A dose lowering technique w as utilized adhering to the principles of ALARA. COMPARISON: Chest radiograph 08/21/2019 FINDINGS: CTA: Heart is normal in size without pericardial effusion. Coronary arterial calcifications are noted. Mil d dilation of the aortic root, 4.0 x 3.9 cm. No dissection. There is patency of the imaged great vess els. Left heart structures and thoracic aorta are not well opacified secondary to contrast bolus hali ng. The pulmonary arterial tree is opacified to level of the subsegmental branches and demonstrates n o focal filling defects to suggest pulmonary thromboembolic disease. CT CHEST: Unremarkable thyroid. No adenopathy by CT size criteria. Trace pleural effusions. Mild linear bibasil ar dependent consolidation suggests atelectasis. Moderate emphysema with mild bilateral bronchial wal l thickening. 3 mm solid nodule of the lateral basal segment left lower lobe, image 65 series 4. Cent ral airways appear patent. Mild nonspecific wall thickening of the distal esophagus. Gynecomastia. Soft tissues are unremarkable . Bones appear intact. Small loose body of the right subscapularis recess. Bony expansion of the post erior right 10th rib with cortical thickening and groundglass attenuation. No acute fracture. The rem aining bony structures appear unremarkable. IMPRESSION: 1. No evidence of pulmonary thromboembolic disease. 2. Mild dilation of the aortic root, 4.0 x 3.9 cm. No dissection. 3. Moderate emphysema with mild bibasilar atelectasis. 4. Trace pleural effusions. 5. 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 This appears atypical for healed remote fracture defo rmity. No acute fracture identified. The above report was generated using voice recognition software. It may contain grammatical, syntax o r spelling errors. Electronically signed by: Raheel Walker M.D. 08/22/2019 8:22 PM
[2019-08-23] MEDS: NITROGLYCERIN 2% OINTMENT 30GM TUBE EXT SCH ×2 (00:17→05:33)
[2019-08-23] MEDS: ACETAMINOPHEN 325 MG TAB PO PRN (05:36)
[2019-08-23 07:00] LABS: Basophils # (auto) 0.01 K/uL (0-0.2); Basophils % (auto) 0.2 %; Eosinophils # (auto) 0.27 K/uL (0-0.5); Eosinophils % (auto) 4.3 %; Hematocrit (blood only) 38.8 % (42-52); Hemoglobin 13.3 g/dL (14.0-18.0); Immature Granulocytes # (auto) 0.01 K/uL (0.00-0.02); Immature Granulocytes % (auto) 0.2 %; Lymphocytes % (auto) 30.2 %; Mean Corpuscular Hemoglobin 31.1 pg (25-34); Mean Corpuscular Hgb Conc 34.3 g/dL (32-36); Mean Corpuscular Volume 90.9 fL (80-100); Mean Platelet Volume 11.8 fL (7.4-10.4); Monocytes # (auto) 0.57 K/uL (0.11-0.59); Neutrophils # (auto) 3.54 K/uL (1.4-6.5); Neutrophils % (auto) 56.1 %; Platelet Count 136 K/uL (130-400); RDW Coefficient of Variation 12.5 % (11.5-14.5); RDW Standard Deviation 41.6 fL (36.4-46.3); Red Blood Count 4.27 M/uL (4.7-6.1)
[2019-08-23 07:27] LABS: BUN Creatinine Ratio 9.1 (10-20); Calcium 8.7 mg/dl (8.5-10.1); Est GFR (African American) 76.7; Est GFR (Non-African American) 66.1; Potassium 3.5 mmol/L (3.5-5.1)
[2019-08-23] MEDS: ATORVASTATIN 40 MG TAB PO SCH (08:42)
[2019-08-23] MEDS ORDERED: ASPIRIN 81 MG ECTAB PO SCH (09:00)
[2019-08-23] MEDS ORDERED: LISINOPRIL 10 MG TAB PO SCH (09:00)
--- NOTE | 2019-08-23 10:12 | Discharge Summary ---
Date of Service August 23, 2019 Admission HPI Per Admitting Provider 54-year-old man with a past medical history came from a correction facility, patient stated that he did have a cardiac catheterization in the , and another cardiac catheterization in October 2018 in [place] in [facility] patient is not sure if he had stents or not but he said that he was on Plavix for the. Of time until he was taken off Plavix. He was in his regular state of health, said that on off he gets mild left-sided chest pain that resolves by itself. Unrelated to exertion. Today he was watching TV when he developed sudden severe left-sided chest pain effect of his neck and left s houlder. He said that it initially felt like heaviness then changed into stabbing, 10/10 intensity , associated with shortness of breath, diaphoresis. He woke to the medical office and was sent to the ED, said that sublingual nitroglycerin helped with the pain partially. He came to the ED and he continued to have pain 6/10. Quit smoking 10 months ago Quit cocaine/drugs 11 years ago No access to alcohol Principal Diagnosis chest pain 2/2 msk Discharge Exam Constitutional WD/WN, vitals as above Eyes PERRL, conjunctivae normal, anicteric sclerae ENMT external ear and nose normal, oropharynx normal Respiratory normal respiratory effort, lungs clear to auscultation Cardiovascular RRR, no murmur, no edema Gastrointestinal (Abdomen) normal bowel sounds, soft, nontender, no hepatosplenomegaly Skin no rashes, warm and dry Psychiatric A+Ox3, euthymic affect Discharge Data Allergies Allergy/AdvReac Type Severity Reaction Status Date / Time No Known Allergies Allergy Unverified 08/21/19 16:00 Consultations 08/21/19 16:59 ED Decision to Admit Stat 08/21/19 20:05 Consult Cardiology Routine 08/22/19 10:21 Consult Health Information Management Routine Ordered Studies 08/22/19 15:43 CT angio chest PE protocol Urgent Hospital Course (1) Chest pain: 54 yo M with PMH HTN and with a reported history of coronary disease having previously suffered 2 myocardial infarctions and unclear whether any intervention was performed presents with complaints of CP. The following is the medical management during stay here: Chest Pain Low likelihood of acute coronary syndrome- neg trops, EKG w/o sig findings Concern for ischemia- Dobutamine stress ECHO 08/22- no evidence of inducible ischemia Likely MSK in nature given recent cough- pleuritic nature of pain Chest CTA to r/o pulmonary vascular pathology- No evidence of pulmonary thromboembolic disease. 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 Lipids unremarkable other than Triglycerides 283 Obtaining records from [facility] where Oct 2018 cath performed- did not receive prior to d/c Cont nitro prn for chest pain Lipids adequate, but recommend high-intensity statin, atorvastatin 40mg--ideally titrating to 80mg -New cardioprotective medications: daily baby asa 81mg, lisinopril 10 (titrating to 20mg) and atorvastatin 40 (titrate to 80mg). HTN Not on BP meds but reports having been on antihypertensive previously. BP remains elevated. Consider starting low-dose beta-fritz after d/c At time of d/c, pt had no other acute concerns or complaints. Total Time Total Time Spent Total Time Spent (In Minutes): <30 Discharge Plan Discharge Items [facility] Disposition: [facility] Reason For Visit: CHEST PAIN R/O Discharge Diagnosis: Chest pain Activity: Per Instructions section Non-emergency contact: Primary Care Provider Call non-emergency contact if: your symptoms worsen and your pain is concerning for you Follow-up/Referrals: Aaron CROW [Primary Care Provider] - Diet: Heart Healthy Addtl Attending Provider Instructions: 54 yo M with PMH HTN and with a reported history of coronary disease having previously suffered 2 myocardial infarctions and unclear whether any intervention was performed presents with complaints of CP. The following is the medical management during stay here: Chest Pain Low likelihood of acute coronary syndrome- neg trops, EKG w/o sig findings Concern for ischemia- Dobutamine stress ECHO 08/22- no evidence of inducible ischemia Likely MSK in nature given recent cough- pleuritic nature of pain Chest CTA to r/o pulmonary vascular pathology- No evidence of pulmonary thromboembolic disease. 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 Lipids unremarkable other than Triglycerides 283 Obtaining records from [facility] where Oct 2018 cath performed- did not receive prior to d/c Cont nitro prn for chest pain Lipids adequate, but recommend high-intensity statin, atorvastatin 40mg--ideally titrating to 80mg -New cardioprotective medications: daily baby asa 81mg, lisinopril 10 (titrating to 20mg) and atorvastatin 40 (titrate to 80mg). HTN Not on BP meds but reports having been on antihypertensive previously. BP remains elevated. Consider starting low-dose beta-fritz after d/c Pending Studies at Discharge: No Skilled Items Patient informed of condition?: Yes DNR: No Discharge Level of Care: Other Communicable Disease: No Discharge Prognosis: Stable Lines: None Urinary Catheter: No Medications and DC Order Prescriptions: New atorvastatin 40 mg Tablet 40 mg PO DAILY 30 Days Qty: 30 RF: 0 aspirin [Ecotrin Low Strength] 81 mg Tablet,Delayed Release (Dr/Ec) 81 mg PO QAM 30 Days Qty: 30 RF: 0 lisinopril 10 mg Tablet 10 mg PO QAM 30 Days Qty: 30 RF: 0 Continued nitroglycerin 0.4 mg Tablet, Sublingual 0.4 mg sublingual UD RF: 0 Admission Data Admit Date/Time: 08/21/19 19:46 Attending Provider: Kev Weathers Admit Provider: Akash Diallo Primary Care Provider: Aaron CROW Other Providers: Akash Diallo ; Rasta Jacob Other Interventions: Discharge Summary Assessment (RN) Last Done: 08/23/19 11:14 DC Date/Time DO NOT enter until pt leaves facility: 08/23/19 12:50 Supervising Physician Co-Signing Physician Notes I personally examined the patient and verified all moran points of history and exam, discussed case, and agree with decision making with Dr Donovan. Pain is improved. Work-up reviewed. Stable for discharge. General he is awake and alert pleasant no distress. HEENT normocephalic atraumatic mucous membranes are moist, very poor dentition. Breathing is unlabored no accessory muscle use good effort. Neuro shows no focal deficits. Chest painhis history seems most consistent with musculoskeletal and fortunately with negative cardiac work-up and negative chest CT very concerning potentially life-threatening pathology has been ruled out. Stable/safe for return to [facility]. If pain recurs would give strong consideration to scheduled Voltaren gel 4 times daily Resident Activity Tracking Resident Involvement: Resident Care Provided Care Provided: Adult Hospital Medicine
--- NOTE | 2019-08-23 19:23 | Billing Data ---
Coding Level of Care Code 56322 OBS Care - Discharge
== END 2019-08-23 12:50 ==
LOC: 2S 15:05 → ED 15:05 → SUATTDRO 19:46 → 2S 21:14